=== PATIENT | male | born 1950 | race Caucasian/White ===

== ENCOUNTER 2022-01-23 08:27 | Inpatient (IN) | payer MEDICARE, OTHER ==
[2022-01-23 09:18] LABS: CHLORIDE,CL 102 mmol/L (98-107); SODIUM,NA 137 mmol/L (136-145)
[2022-01-23] MEDS ORDERED: Morphine 2 MG/ML SYRINGE IVPUSH ONE ×2 (09:18→09:24)
[2022-01-23 09:19] LABS: ANION GAP 10.7 mmol/L (5-15)
[2022-01-23] MEDS ORDERED: Ondansetron 4 MG/2 ML SDV IVPUSH ONE (09:19)
[2022-01-23] MEDS ORDERED: cefTRIAXone 1 GM Vial IVPUSH ONE (09:21)
[2022-01-23] MEDS ORDERED: Levalbuterol HCl 1.25 MG/0.5 ML Neb NEB ONE (09:24)
[2022-01-23] MEDS ORDERED: Aspirin 81 MG Tab.Chew PO ONE (09:35)
[2022-01-23] MEDS ORDERED: Sodium Chloride 0.9% 1,000 ML IV ONE (09:35)
[2022-01-23] MEDS ORDERED: Levofloxacin/Dextrose 5%-Water 750 MG in Premix Bag 1 BAG IV ONE (10:31)
[2022-01-23] MEDS ORDERED: Nitroglycerin 0.4 MG Tab.SL SL PRN (10:33)
[2022-01-23] MEDS ORDERED: Hydrocortisone Sodium Succinate 100 MG/2 ML SDV IVPUSH ONE ×2 (10:52→12:15)
[2022-01-23] MEDS ORDERED: Iopamidol 755 Mg/ML 100 ML Bottle IVPUSH ONE (10:55)
[2022-01-23] MEDS ORDERED: Albuterol/Ipratropium 3.0-0.5 MG/3 ML Neb Soln NEB PRN (12:04)
[2022-01-23 12:13] LABS: CORONAVIRUS COVID-19 NAA NEGATIVE (NEGATIVE)
[2022-01-23 12:14] LABS: RESPIRATORY SYNCYTIAL VIR NAA NEGATIVE (NEGATIVE)
[2022-01-23] MEDS: Morphine 2 MG/ML SYRINGE IVPUSH PRN ×2 (12:42→16:28)
[2022-01-23] MEDS: Sodium Chloride 0.9% 1,000 ML IV SCH ×2 (14:10→23:55)
[2022-01-23] MEDS: Acetaminophen 325 MG Tab PO PRN (14:28)
[2022-01-23] MEDS: Albuterol/Ipratropium 3.0-0.5 MG/3 ML Neb Soln NEB SCH ×2 (14:29→18:00)
[2022-01-23] MEDS ORDERED: Albuterol 0.083% 2.5 MG/3 ML Neb Soln NEB PRN (14:39)
[2022-01-23] MEDS: Omeprazole 20 MG Cap.CR PO SCH (16:05)
[2022-01-23] MEDS ORDERED: Glucagon,Human Recombinant 1 MG Vial IM PRN (17:27)
[2022-01-23] MEDS ORDERED: 50% Dextrose in Water 50 ML Syringe IVPUSH PRN (17:27)
[2022-01-23] MEDS: Hydrocortisone 20 MG Tab PO SCH (17:59)
[2022-01-23] MEDS: Insulin Glarg,Human.Rec.Analog 100 Unit/ML SUBCUT SCH (18:00)
[2022-01-23] MEDS: Enoxaparin 40 MG/0.4 ML Syringe SUBCUT SCH (19:51)
[2022-01-23] MEDS: Sertraline 100 MG Tab PO SCH (19:52)
[2022-01-23] MEDS: Simvastatin 10 MG Tab PO SCH (19:52)
[2022-01-23] MEDS: buPROPion 150 MG Tab.ER PO SCH (19:52)
[2022-01-23] MEDS: Allopurinol 100 MG Tab PO SCH (19:52)
[2022-01-23] MEDS: traZODone 50 MG Tab PO SCH (19:53)
[2022-01-23] MEDS ORDERED: Piperacillin/Tazobactam 4.5 GM in Sodium Chloride 0.9% 100 ML IV ONE (20:00)
[2022-01-23] MEDS: LORazepam 0.5 MG Tab PO PRN (22:56)
[2022-01-24] MEDS: Albuterol/Ipratropium 3.0-0.5 MG/3 ML Neb Soln NEB SCH ×4 (01:31→18:06)
[2022-01-24] MEDS ORDERED: Metoprolol Tartrate 5 MG/5 ML SDV IVPUSH ONE (01:57)
[2022-01-24] MEDS: Piperacillin/Tazobactam 3.375 GM in Sodium Chloride 0.9% 100 ML IV SCH ×3 (03:47→19:27)
[2022-01-24] MEDS: Sodium Chloride 0.9% 1,000 ML IV SCH (04:32)
[2022-01-24] MEDS: Levothyroxine 150 MCG Tab PO SCH (06:18)
[2022-01-24] MEDS: Omeprazole 20 MG Cap.CR PO SCH ×2 (06:18→17:04)
[2022-01-24 07:10] LABS: CHLORIDE,CL 110 mmol/L (98-107); SODIUM,NA 141 mmol/L (136-145)
[2022-01-24 07:11] LABS: ANION GAP 7.9 mmol/L (5-15)
[2022-01-24] MEDS: Cholecalciferol (Vitamin D3) 25 MCG Tab PO SCH (07:50)
[2022-01-24] MEDS: Montelukast 10 MG Tab PO SCH (07:50)
[2022-01-24] MEDS: Hydrocortisone 20 MG Tab PO SCH ×2 (07:50→17:04)
[2022-01-24] MEDS: Ascorbic Acid 500 MG Tab PO SCH (07:50)
[2022-01-24] MEDS: Insulin Glarg,Human.Rec.Analog 100 Unit/ML SUBCUT SCH (07:53)
[2022-01-24] MEDS: TESTOSTERONE TOP SCH (09:18)
[2022-01-24] MEDS: Acetaminophen 325 MG Tab PO PRN ×2 (10:16→19:38)
[2022-01-24] MEDS: buPROPion 150 MG Tab.ER PO SCH (19:30)
[2022-01-24] MEDS: traZODone 50 MG Tab PO SCH (19:30)
[2022-01-24] MEDS: Sertraline 100 MG Tab PO SCH (19:30)
[2022-01-24] MEDS: Simvastatin 10 MG Tab PO SCH (19:30)
[2022-01-24] MEDS: Allopurinol 100 MG Tab PO SCH (19:30)
[2022-01-24] MEDS: Enoxaparin 40 MG/0.4 ML Syringe SUBCUT SCH (19:31)
[2022-01-24] MEDS: LORazepam 0.5 MG Tab PO PRN (23:04)
[2022-01-25] MEDS: Albuterol/Ipratropium 3.0-0.5 MG/3 ML Neb Soln NEB SCH ×4 (00:04→18:27)
[2022-01-25] MEDS: Morphine 2 MG/ML SYRINGE IVPUSH PRN (01:57)
[2022-01-25] MEDS: Piperacillin/Tazobactam 3.375 GM in Sodium Chloride 0.9% 100 ML IV SCH ×3 (03:00→19:50)
[2022-01-25] MEDS: Lisinopril 2.5 MG Tab PO SCH ×2 (03:31→08:08)
[2022-01-25] MEDS: Levothyroxine 150 MCG Tab PO SCH (06:01)
[2022-01-25] MEDS: Omeprazole 20 MG Cap.CR PO SCH ×2 (06:01→17:40)
[2022-01-25 07:11] LABS: CHLORIDE,CL 109 mmol/L (98-107); SODIUM,NA 141 mmol/L (136-145)
[2022-01-25] MEDS: Acetaminophen/HYDROcodone 325-5 MG Tab PO PRN ×2 (08:07→20:37)
[2022-01-25] MEDS: Cholecalciferol (Vitamin D3) 25 MCG Tab PO SCH (08:08)
[2022-01-25] MEDS: Ascorbic Acid 500 MG Tab PO SCH (08:09)
[2022-01-25] MEDS: Hydrocortisone 20 MG Tab PO SCH (08:09)
[2022-01-25] MEDS: Montelukast 10 MG Tab PO SCH (08:09)
[2022-01-25] MEDS: Insulin Glarg,Human.Rec.Analog 100 Unit/ML SUBCUT SCH (08:11)
[2022-01-25] MEDS: TESTOSTERONE TOP SCH (08:12)
[2022-01-25] MEDS ORDERED: methylPREDNISolone Sodium Succinate 40 MG/1 ML SDV IVPUSH ONE (09:15)
[2022-01-25] MEDS: metFORMIN 500 MG Tab PO SCH ×2 (09:36→17:41)
[2022-01-25] MEDS: Arformoterol 15 MCG/2 ML Neb Soln NEB SCH ×2 (09:37→20:27)
[2022-01-25] MEDS: VANCOmycin 1.25 GM/250 ML 1.25 GM in Premix Bag 1 BAG IV SCH (11:30)
[2022-01-25] MEDS ORDERED: Metoprolol Tartrate 5 MG/5 ML SDV IVPUSH PRN (16:59)
[2022-01-25] MEDS ORDERED: Metoprolol Succinate 25 MG Tab.ER PO ONE (17:00)
[2022-01-25] MEDS: LORazepam 0.5 MG Tab PO PRN ×2 (17:15→23:18)
[2022-01-25] MEDS ORDERED: 50% Dextrose in Water 50 ML Syringe IVPUSH PRN (17:30)
[2022-01-25] MEDS ORDERED: Glucagon,Human Recombinant 1 MG Vial IM PRN (17:30)
[2022-01-25] MEDS: Insulin Lispro 100 Units/ML 3 ML Vial SUBCUT SCH (17:41)
[2022-01-25] MEDS ORDERED: Lisinopril 2.5 MG Tab PO SCH (20:00)
[2022-01-25] MEDS ORDERED: Lisinopril 5 MG Tab PO SCH (20:00)
[2022-01-25] MEDS: Sertraline 100 MG Tab PO SCH (20:26)
[2022-01-25] MEDS: traZODone 50 MG Tab PO SCH (20:26)
[2022-01-25] MEDS: Allopurinol 100 MG Tab PO SCH (20:26)
[2022-01-25] MEDS: buPROPion 150 MG Tab.ER PO SCH (20:26)
[2022-01-25] MEDS: Simvastatin 10 MG Tab PO SCH (20:26)
[2022-01-26] MEDS: Albuterol/Ipratropium 3.0-0.5 MG/3 ML Neb Soln NEB SCH ×2 (00:06→06:36)
[2022-01-26] MEDS: Piperacillin/Tazobactam 3.375 GM in Sodium Chloride 0.9% 100 ML IV SCH (03:48)
[2022-01-26] MEDS: Arformoterol 15 MCG/2 ML Neb Soln NEB SCH (06:36)
[2022-01-26] MEDS: Omeprazole 20 MG Cap.CR PO SCH (06:36)
[2022-01-26] MEDS: Levothyroxine 150 MCG Tab PO SCH (06:36)
[2022-01-26] MEDS: Acetaminophen/HYDROcodone 325-5 MG Tab PO PRN ×2 (06:39→11:41)
[2022-01-26 07:30] LABS: CHLORIDE,CL 107 mmol/L (98-107); SODIUM,NA 142 mmol/L (136-145)
[2022-01-26 07:32] LABS: ANION GAP 12.9 mmol/L (5-15)
[2022-01-26] MEDS: Ascorbic Acid 500 MG Tab PO SCH (09:03)
[2022-01-26] MEDS: Cholecalciferol (Vitamin D3) 25 MCG Tab PO SCH (09:03)
[2022-01-26] MEDS: metFORMIN 500 MG Tab PO SCH (09:03)
[2022-01-26] MEDS: Montelukast 10 MG Tab PO SCH (09:03)
[2022-01-26] MEDS: TESTOSTERONE TOP SCH (09:05)
[2022-01-26] MEDS: Insulin Lispro 100 Units/ML 3 ML Vial SUBCUT SCH ×2 (09:07→11:41)
[2022-01-26] MEDS: Insulin Glarg,Human.Rec.Analog 100 Unit/ML SUBCUT SCH (09:07)
[2022-01-26] MEDS ORDERED: Metoprolol Succinate 25 MG Tab.ER PO SCH (09:15)
[2022-01-26] MEDS ORDERED: predniSONE 20 MG Tab PO SCH (09:30)
[2022-01-26] MEDS: VANCOmycin 1.25 GM/250 ML 1.25 GM in Premix Bag 1 BAG IV SCH ×3 (10:51)
== END 2022-01-26 12:50 | disposition home or self-care (01) | DRG 871 ==
LOC: VM.ED 08:27 → VM.MS 10:55
PROVIDERS: ADMIT Physician Assistant Medical; ATTEND Internal Medicine
DX: A41.9 Sepsis, unspecified organism (principal); J18.9 Pneumonia, unspecified organism; R07.89 Other chest pain; J96.01 Acute respiratory failure with hypoxia; J45.901 Unspecified asthma with (acute) exacerbation; E23.0 Hypopituitarism; I95.9 Hypotension, unspecified; I48.0 Paroxysmal atrial fibrillation; N18.9 Chronic kidney disease, unspecified; I12.9 Hypertensive chronic kidney disease with stage 1 through stage 4 chronic kidney disease, or unspecified chronic kidney disease; R07.9 Chest pain, unspecified; F32.A Depression, unspecified; E11.22 Type 2 diabetes mellitus with diabetic chronic kidney disease; E66.9 Obesity, unspecified; K80.80 Other cholelithiasis without obstruction; M19.90 Unspecified osteoarthritis, unspecified site; E78.5 Hyperlipidemia, unspecified; E03.9 Hypothyroidism, unspecified; Z87.442 Personal history of urinary calculi; Z91.041 Radiographic dye allergy status; Z91.013 Allergy to seafood; Z88.8 Allergy status to other drugs, medicaments and biological substances; Z79.899 Other long term (current) drug therapy; Z79.890 Hormone replacement therapy; Z87.891 Personal history of nicotine dependence; Z79.84 Long term (current) use of oral hypoglycemic drugs; Z98.890 Other specified postprocedural states; Z98.84 Bariatric surgery status; Z20.822 Contact with and (suspected) exposure to COVID-19; Z68.28 Body mass index [BMI] 28.0-28.9, adult
CPT/HCPCS: 0241U; 36415; 71045; 71046; 71275; 80048; 80069; 80076; 80202; 81001; 82947; 83605; 84145; 84436; 84443; 84480; 84484; 85025; 86140; 87040; 87070; 87205; 93005; 93010; 94640; 94667; 94760; 96374; 96375; 99284; 99285-25; A9270-GY; J0696; J1650; J1720; J1815-GY; J1956; J2270; J2405; J2543; J2920; J3370; J3490; J7030; J7050; J7512; J7613-GY; J7620-GY; Q9967

== ENCOUNTER 2022-01-28 13:56 | Inpatient (IN) | payer MEDICARE, OTHER ==
[2022-01-28] MEDS ORDERED: Sodium Chloride 0.9% 10 ML Syringe FLUSH PRN (14:20)
[2022-01-28] MEDS ORDERED: Albuterol/Ipratropium 3.0-0.5 MG/3 ML Neb Soln NEB ONE (14:25)
[2022-01-28 15:35] LABS: PTT,PARTIAL THROMBOPLSTIN TIME 28.7 SEC (20.5-30.9)
[2022-01-28 15:50] LABS: CHLORIDE,CL 100 mmol/L (98-107); SODIUM,NA 139 mmol/L (136-145)
[2022-01-28 15:52] LABS: ANION GAP 16.2 mmol/L (5-15)
[2022-01-28] MEDS ORDERED: Piperacillin/Tazobactam 4.5 GM in Sodium Chloride 0.9% 100 ML IV ONE (15:58)
[2022-01-28] MEDS ORDERED: methylPREDNISolone Sodium Succinate 125 MG/2 ML SDV IVPUSH ONE (16:09)
[2022-01-28 16:38] LABS: CORONAVIRUS COVID-19 NAA NEGATIVE (NEGATIVE)
[2022-01-28 16:39] LABS: RESPIRATORY SYNCYTIAL VIR NAA NEGATIVE (NEGATIVE)
[2022-01-28] MEDS ORDERED: Piperacillin/Tazobactam 4.5 GM Vial ONE (17:00)
[2022-01-28] MEDS ORDERED: Piperacillin/Tazobactam 3.375 GM in Sodium Chloride 0.9% 100 ML IV SCH (18:30)
[2022-01-28] MEDS ORDERED: Lisinopril 2.5 MG Tab PO SCH (20:00)
[2022-01-28] MEDS: Arformoterol 15 MCG/2 ML Neb Soln NEB SCH (20:13)
[2022-01-28] MEDS: Allopurinol 100 MG Tab PO SCH (20:18)
[2022-01-28] MEDS: buPROPion 150 MG Tab.ER PO SCH (20:19)
[2022-01-28] MEDS: Simvastatin 20 MG Tab PO SCH (20:19)
[2022-01-28] MEDS: Sertraline 100 MG Tab PO SCH (20:19)
[2022-01-28] MEDS: Omeprazole 20 MG Cap.CR PO SCH (20:19)
[2022-01-28] MEDS: traZODone 50 MG Tab PO SCH (20:20)
[2022-01-28] MEDS ORDERED: Acetaminophen/oxyCODONE 325-5 MG Tab PO ONE (21:00)
[2022-01-28] MEDS: Piperacillin/Tazobactam 3.375 GM in Sodium Chloride 0.9% 100 ML IV SCH (21:49)
[2022-01-29] MEDS ORDERED: amLODIPine 5 MG Tab PO STA (00:02)
[2022-01-29] MEDS: Arformoterol 15 MCG/2 ML Neb Soln NEB SCH ×2 (06:09→21:00)
[2022-01-29] MEDS: Piperacillin/Tazobactam 3.375 GM in Sodium Chloride 0.9% 100 ML IV SCH ×3 (06:10→21:49)
[2022-01-29] MEDS: Acetaminophen 325 MG Tab PO PRN ×3 (06:13→17:54)
[2022-01-29] MEDS: Albuterol/Ipratropium 3.0-0.5 MG/3 ML Neb Soln NEB PRN ×2 (06:26→15:39)
[2022-01-29] MEDS: Tiotropium Bromide 4 GM Inhalation Spray (2.5mcg/1 dose; 10 doses) INH SCH (07:46)
[2022-01-29] MEDS: Aspirin 81 MG Tab.EC PO SCH (07:54)
[2022-01-29] MEDS: Multivitamins with Iron/Calcium/Folic Acid/Minerals Tab PO SCH (07:54)
[2022-01-29] MEDS: Furosemide 20 MG Tab PO SCH (07:54)
[2022-01-29] MEDS: Metoprolol Succinate 25 MG Tab.ER PO SCH (07:54)
[2022-01-29] MEDS: metFORMIN 500 MG Tab PO SCH ×2 (07:55→17:54)
[2022-01-29] MEDS: Cholecalciferol (Vitamin D3) 25 MCG Tab PO SCH (07:55)
[2022-01-29] MEDS: Montelukast 10 MG Tab PO SCH (07:55)
[2022-01-29] MEDS: Omeprazole 20 MG Cap.CR PO SCH ×2 (07:55→21:00)
[2022-01-29] MEDS: Ascorbic Acid 500 MG Tab PO SCH (07:55)
[2022-01-29] MEDS ORDERED: Levothyroxine 150 MCG Tab PO SCH (08:00)
[2022-01-29 08:59] LABS: ANION GAP 13.4 mmol/L (5-15)
[2022-01-29] MEDS: Lisinopril 10 MG Tab PO SCH (09:55)
[2022-01-29] MEDS: Sodium Chloride 0.9% 1,000 ML IV SCH ×2 (09:55→21:30)
[2022-01-29] MEDS: Hydrocortisone 20 MG Tab PO SCH (11:21)
[2022-01-29] MEDS: Enoxaparin 40 MG/0.4 ML Syringe SUBCUT SCH (11:21)
[2022-01-29] MEDS: tiZANidine 4 MG Tab PO PRN ×2 (13:57→22:50)
[2022-01-29] MEDS: Ondansetron 4 MG/2 ML SDV IVPUSH PRN (17:54)
[2022-01-29] MEDS: Sertraline 100 MG Tab PO SCH (21:00)
[2022-01-29] MEDS: Simvastatin 20 MG Tab PO SCH (21:00)
[2022-01-29] MEDS: traZODone 50 MG Tab PO SCH (21:00)
[2022-01-29] MEDS: buPROPion 150 MG Tab.ER PO SCH (21:00)
[2022-01-29] MEDS: Allopurinol 100 MG Tab PO SCH (21:00)
[2022-01-29] MEDS ORDERED: Acetaminophen/oxyCODONE 325-5 MG Tab PO ONE (21:08)
[2022-01-30] MEDS: Piperacillin/Tazobactam 3.375 GM in Sodium Chloride 0.9% 100 ML IV SCH ×3 (05:15→22:22)
[2022-01-30] MEDS: Levothyroxine 150 MCG Tab PO SCH (06:00)
[2022-01-30] MEDS: Arformoterol 15 MCG/2 ML Neb Soln NEB SCH ×2 (06:00→20:18)
[2022-01-30 07:45] LABS: ANION GAP 12.5 mmol/L (5-15)
[2022-01-30] MEDS ORDERED: LORazepam 0.5 MG Tab PO PRN (08:38)
[2022-01-30] MEDS ORDERED: Flumazenil 0.1 MG/ML 5 ML MDV IVPUSH PRN (08:43)
[2022-01-30] MEDS ORDERED: LORazepam 2 MG/ML SDV IVPUSH PRN (08:43)
[2022-01-30] MEDS ORDERED: 50% Dextrose in Water 50 ML Syringe IVPUSH PRN (08:46)
[2022-01-30] MEDS ORDERED: Glucagon,Human Recombinant 1 MG Vial IM PRN (08:46)
[2022-01-30] MEDS: Cholecalciferol (Vitamin D3) 25 MCG Tab PO SCH (09:53)
[2022-01-30] MEDS: Multivitamins with Iron/Calcium/Folic Acid/Minerals Tab PO SCH (09:53)
[2022-01-30] MEDS: Montelukast 10 MG Tab PO SCH (09:54)
[2022-01-30] MEDS: Ascorbic Acid 500 MG Tab PO SCH (09:54)
[2022-01-30] MEDS: Aspirin 81 MG Tab.EC PO SCH (09:54)
[2022-01-30] MEDS: Omeprazole 20 MG Cap.CR PO SCH ×2 (09:54→20:20)
[2022-01-30] MEDS: Furosemide 20 MG Tab PO SCH (09:54)
[2022-01-30] MEDS: Lisinopril 10 MG Tab PO SCH (09:55)
[2022-01-30] MEDS: Metoprolol Succinate 25 MG Tab.ER PO SCH (09:55)
[2022-01-30] MEDS: Tiotropium Bromide 4 GM Inhalation Spray (2.5mcg/1 dose; 10 doses) INH SCH (10:04)
[2022-01-30] MEDS: Albuterol 0.083% 2.5 MG/3 ML Neb Soln NEB SCH ×3 (10:05→20:18)
[2022-01-30] MEDS: Insulin Glarg,Human.Rec.Analog 100 Unit/ML SUBCUT SCH (10:05)
[2022-01-30] MEDS: methylPREDNISolone Sodium Succinate 40 MG/1 ML SDV IVPUSH SCH ×2 (10:06→20:21)
[2022-01-30] MEDS: Enoxaparin 40 MG/0.4 ML Syringe SUBCUT SCH (12:57)
[2022-01-30] MEDS: Hydrocortisone 20 MG Tab PO SCH (12:57)
[2022-01-30] MEDS: Acetaminophen 325 MG Tab PO PRN (12:58)
[2022-01-30] MEDS: Codeine/guaiFENesin 10-100 MG/5 ML Syrup 5 ML Cup PO PRN ×2 (13:01→17:33)
[2022-01-30] MEDS ORDERED: Furosemide 20 MG/2 ML VIAL IV ONE (17:30)
[2022-01-30] MEDS: Albuterol/Ipratropium 3.0-0.5 MG/3 ML Neb Soln NEB PRN (17:34)
[2022-01-30] MEDS: traZODone 50 MG Tab PO SCH (20:18)
[2022-01-30] MEDS: Simvastatin 20 MG Tab PO SCH (20:19)
[2022-01-30] MEDS: buPROPion 150 MG Tab.ER PO SCH (20:19)
[2022-01-30] MEDS: Allopurinol 100 MG Tab PO SCH (20:20)
[2022-01-30] MEDS: Sertraline 100 MG Tab PO SCH (20:20)
[2022-01-30] MEDS ORDERED: Acetaminophen/oxyCODONE 325-5 MG Tab PO ONE (22:10)
[2022-01-30] MEDS ORDERED: Acetaminophen/HYDROcodone 325-10 MG Tab PO ONE (22:28)
[2022-01-31] MEDS: Levothyroxine 150 MCG Tab PO SCH (06:33)
[2022-01-31] MEDS: Piperacillin/Tazobactam 3.375 GM in Sodium Chloride 0.9% 100 ML IV SCH (06:34)
[2022-01-31 06:52] LABS: CHLORIDE,CL 102 mmol/L (98-107); SODIUM,NA 139 mmol/L (136-145)
[2022-01-31 06:54] LABS: ANION GAP 9.1 mmol/L (5-15)
[2022-01-31] MEDS: Arformoterol 15 MCG/2 ML Neb Soln NEB SCH (07:35)
[2022-01-31] MEDS: Albuterol 0.083% 2.5 MG/3 ML Neb Soln NEB SCH ×2 (07:35→11:27)
[2022-01-31] MEDS: Tiotropium Bromide 4 GM Inhalation Spray (2.5mcg/1 dose; 10 doses) INH SCH (07:36)
[2022-01-31] MEDS: Insulin Glarg,Human.Rec.Analog 100 Unit/ML SUBCUT SCH (07:41)
[2022-01-31] MEDS: Ondansetron 4 MG/2 ML SDV IVPUSH PRN (07:42)
[2022-01-31] MEDS: Codeine/guaiFENesin 10-100 MG/5 ML Syrup 5 ML Cup PO PRN (07:42)
[2022-01-31] MEDS: methylPREDNISolone Sodium Succinate 40 MG/1 ML SDV IVPUSH SCH (07:42)
[2022-01-31] MEDS: Ascorbic Acid 500 MG Tab PO SCH (07:43)
[2022-01-31] MEDS: Aspirin 81 MG Tab.EC PO SCH (07:43)
[2022-01-31] MEDS: Metoprolol Succinate 25 MG Tab.ER PO SCH (07:43)
[2022-01-31] MEDS: Montelukast 10 MG Tab PO SCH (07:43)
[2022-01-31] MEDS: Cholecalciferol (Vitamin D3) 25 MCG Tab PO SCH (07:43)
[2022-01-31] MEDS: Omeprazole 20 MG Cap.CR PO SCH (07:43)
[2022-01-31] MEDS: tiZANidine 4 MG Tab PO PRN (07:43)
[2022-01-31] MEDS: Lisinopril 10 MG Tab PO SCH (07:44)
[2022-01-31] MEDS: Multivitamins with Iron/Calcium/Folic Acid/Minerals Tab PO SCH (07:44)
[2022-01-31] MEDS: Furosemide 20 MG Tab PO SCH (07:44)
== END 2022-01-31 11:05 | disposition home or self-care (01) | DRG 871 ==
LOC: VM.ED 13:56 → VM.MS 16:50
PROVIDERS: ADMIT Nurse Practitioner Family; ATTEND Internal Medicine
DX: A41.89 Other specified sepsis (principal); J18.9 Pneumonia, unspecified organism; I50.9 Heart failure, unspecified; E86.0 Dehydration; H54.7 Unspecified visual loss; M19.90 Unspecified osteoarthritis, unspecified site; G56.03 Carpal tunnel syndrome, bilateral upper limbs; I11.0 Hypertensive heart disease with heart failure; J45.909 Unspecified asthma, uncomplicated; E11.69 Type 2 diabetes mellitus with other specified complication; E78.5 Hyperlipidemia, unspecified; F32.A Depression, unspecified; E66.9 Obesity, unspecified; I48.0 Paroxysmal atrial fibrillation; N28.9 Disorder of kidney and ureter, unspecified; E11.65 Type 2 diabetes mellitus with hyperglycemia; G47.00 Insomnia, unspecified; J84.10 Pulmonary fibrosis, unspecified; E03.9 Hypothyroidism, unspecified; Z87.442 Personal history of urinary calculi; E23.0 Hypopituitarism; E11.9 Type 2 diabetes mellitus without complications; Z91.09 Other allergy status, other than to drugs and biological substances; Z79.51 Long term (current) use of inhaled steroids; Z95.1 Presence of aortocoronary bypass graft; Z87.891 Personal history of nicotine dependence; Z91.041 Radiographic dye allergy status; Z91.013 Allergy to seafood; Z88.8 Allergy status to other drugs, medicaments and biological substances; Z98.84 Bariatric surgery status; Z91.048 Other nonmedicinal substance allergy status; Z68.29 Body mass index [BMI] 29.0-29.9, adult; Z79.82 Long term (current) use of aspirin; Z79.890 Hormone replacement therapy; Z79.4 Long term (current) use of insulin; Z79.52 Long term (current) use of systemic steroids; Z79.899 Other long term (current) drug therapy; Z20.822 Contact with and (suspected) exposure to COVID-19
CPT/HCPCS: 0241U; 36415; 71045; 71046; 80048; 80053; 82803; 83605; 83735; 83880; 84100; 84484; 85025; 85610; 85730; 86140; 87040; 93005; 93010; 94640; 94667; 94760; 96374; 96375; 99284; 99285-25; A9270-GY; J1650; J1815-GY; J1940; J2060; J2405; J2543; J2920; J2930; J7030; J7613-GY; J7620-GY

== ENCOUNTER 2022-02-08 17:07 | Inpatient (IN) | payer MEDICARE, OTHER ==
[2022-02-08] MEDS ORDERED: Diltiazem 50 MG/10 ML SDV IVPUSH ONE ×2 (17:35→17:38)
[2022-02-08] MEDS ORDERED: Ondansetron 4 MG/2 ML SDV IVPUSH ONE (17:51)
[2022-02-08 18:00] LABS: CHLORIDE,CL 101 mmol/L (98-107); SODIUM,NA 144 mmol/L (136-145)
[2022-02-08 18:01] LABS: ANION GAP 13.6 mmol/L (5-15)
[2022-02-08] MEDS ORDERED: Diltiazem 125 MG in Sodium Chloride 0.9% 100 ML IV SCH (18:30)
[2022-02-08] MEDS ORDERED: Sodium Chloride 0.9% 1,000 ML IV SCH (19:48)
[2022-02-08] MEDS: Digoxin 500 MCG/2 ML Amp IVPUSH SCH (21:25)
[2022-02-08] MEDS ORDERED: Glucagon,Human Recombinant 1 MG Vial IM PRN (21:38)
[2022-02-08] MEDS ORDERED: Albuterol 0.083% 2.5 MG/3 ML Neb Soln NEB PRN (21:38)
[2022-02-08] MEDS ORDERED: 50% Dextrose in Water 50 ML Syringe IVPUSH PRN (21:38)
[2022-02-08] MEDS ORDERED: Acetaminophen 325 MG Tab PO PRN (21:38)
[2022-02-08] MEDS ORDERED: Ondansetron 4 MG Tab.DIS PO PRN (21:49)
[2022-02-08] MEDS ORDERED: Ondansetron 4 MG/2 ML SDV IVPUSH PRN (21:50)
[2022-02-08] MEDS: Lisinopril 2.5 MG Tab PO SCH (22:15)
[2022-02-08] MEDS: Enoxaparin 40 MG/0.4 ML Syringe SUBCUT SCH (23:11)
[2022-02-08] MEDS: LORazepam 1 MG Tab PO PRN (23:18)
[2022-02-08] MEDS: Acetaminophen/HYDROcodone 325-5 MG Tab PO PRN (23:19)
[2022-02-09] MEDS: Digoxin 500 MCG/2 ML Amp IVPUSH SCH (03:22)
[2022-02-09] MEDS: Arformoterol 15 MCG/2 ML Neb Soln NEB SCH ×2 (06:17→19:54)
[2022-02-09] MEDS: Levothyroxine 150 MCG Tab PO SCH (06:19)
[2022-02-09] MEDS: Pantoprazole 40 MG Tab.CR PO SCH ×2 (06:20→18:21)
[2022-02-09] MEDS: Acetaminophen/HYDROcodone 325-5 MG Tab PO PRN ×3 (06:20→21:46)
[2022-02-09 07:15] LABS: ANION GAP 8.9 mmol/L (5-15)
[2022-02-09] MEDS ORDERED: Insulin Glarg,Human.Rec.Analog 100 Unit/ML SUBCUT SCH ×3 (08:00→20:00)
[2022-02-09] MEDS ORDERED: Aspirin 81 MG Tab.EC PO SCH (08:00)
[2022-02-09] MEDS ORDERED: predniSONE 20 MG Tab PO SCH (08:00)
[2022-02-09] MEDS: Furosemide 20 MG Tab PO SCH (08:08)
[2022-02-09] MEDS: Tamsulosin 0.4 MG Cap.ER PO SCH (08:09)
[2022-02-09] MEDS: Ascorbic Acid 500 MG Tab PO SCH (08:09)
[2022-02-09] MEDS: Cholecalciferol (Vitamin D3) 25 MCG Tab PO SCH (08:09)
[2022-02-09] MEDS: Multivitamins with Iron/Calcium/Folic Acid/Minerals Tab PO SCH (08:09)
[2022-02-09] MEDS: Montelukast 10 MG Tab PO SCH (08:09)
[2022-02-09] MEDS: Metoprolol Succinate 25 MG Tab.ER PO SCH (08:09)
[2022-02-09] MEDS ORDERED: Tiotropium Bromide 4 GM Inhalation Spray (2.5mcg/1 dose; 10 doses) INH SCH (09:30)
[2022-02-09] MEDS: Digoxin 125 MCG Tab PO SCH (10:24)
[2022-02-09] MEDS: Tiotropium Bromide 4 GM Inhalation Spray (2.5mcg/1 dose; 10 doses) INH SCH (11:27)
[2022-02-09] MEDS: TESTOSTERONE TOP SCH (18:27)
[2022-02-09] MEDS: Enoxaparin 40 MG/0.4 ML Syringe SUBCUT SCH (19:54)
[2022-02-09] MEDS: Lisinopril 2.5 MG Tab PO SCH (19:57)
[2022-02-09] MEDS ORDERED: Simvastatin 20 MG Tab PO SCH (20:00)
[2022-02-09] MEDS ORDERED: traZODone 50 MG Tab PO SCH (20:00)
[2022-02-09] MEDS ORDERED: Allopurinol 100 MG Tab PO SCH (20:00)
[2022-02-09] MEDS ORDERED: buPROPion 150 MG Tab.ER PO SCH (20:00)
[2022-02-09] MEDS ORDERED: Sertraline 100 MG Tab PO SCH (20:00)
[2022-02-09] MEDS: Albuterol HFA 18 Gm Inhaler INH PRN (20:08)
[2022-02-09] MEDS: Miconazole 2% Top Powder 45 GM Container TOP SCH (20:09)
[2022-02-09] MEDS: LORazepam 1 MG Tab PO PRN (21:46)
[2022-02-10] MEDS: Pantoprazole 40 MG Tab.CR PO SCH (06:41)
[2022-02-10] MEDS: Levothyroxine 150 MCG Tab PO SCH (06:41)
[2022-02-10] MEDS: Arformoterol 15 MCG/2 ML Neb Soln NEB SCH (07:21)
[2022-02-10] MEDS: Metoprolol Succinate 25 MG Tab.ER PO SCH (07:57)
[2022-02-10] MEDS: Montelukast 10 MG Tab PO SCH (07:57)
[2022-02-10] MEDS: Multivitamins with Iron/Calcium/Folic Acid/Minerals Tab PO SCH (07:58)
[2022-02-10] MEDS: Cholecalciferol (Vitamin D3) 25 MCG Tab PO SCH (07:58)
[2022-02-10] MEDS: Tamsulosin 0.4 MG Cap.ER PO SCH (07:58)
[2022-02-10] MEDS: Digoxin 125 MCG Tab PO SCH (07:58)
[2022-02-10] MEDS: Furosemide 20 MG Tab PO SCH (07:58)
[2022-02-10] MEDS: Ascorbic Acid 500 MG Tab PO SCH (07:58)
[2022-02-10] MEDS ORDERED: predniSONE 10 MG Tab PO SCH (08:00)
[2022-02-10] MEDS: Miconazole 2% Top Powder 45 GM Container TOP SCH (08:03)
[2022-02-10] MEDS: TESTOSTERONE TOP SCH (08:04)
[2022-02-10] MEDS: Tiotropium Bromide 4 GM Inhalation Spray (2.5mcg/1 dose; 10 doses) INH SCH (08:04)
[2022-02-10 08:06] LABS: CHLORIDE,CL 102 mmol/L (98-107); SODIUM,NA 142 mmol/L (136-145)
[2022-02-10 08:13] LABS: ANION GAP 8.9 mmol/L (5-15)
[2022-02-10] MEDS ORDERED: Insulin Lispro 100 Units/ML 3 ML Vial SUBCUT SCH (08:17)
[2022-02-10] MEDS ORDERED: Glucagon,Human Recombinant 1 MG Vial IM PRN (08:17)
[2022-02-10] MEDS ORDERED: 50% Dextrose in Water 50 ML Syringe IVPUSH PRN (08:17)
[2022-02-10] MEDS: Potassium Chloride 10 MEQ Tab.ER PO SCH ×2 (09:16→11:33)
[2022-02-10] MEDS ORDERED: Apixaban 2.5 MG Tab PO SCH (10:00)
[2022-02-10] MEDS: Acetaminophen/HYDROcodone 325-5 MG Tab PO PRN (11:38)
[2022-02-10] MEDS: Albuterol HFA 18 Gm Inhaler INH PRN (12:13)
[2022-02-11] MEDS ORDERED: Digoxin 125 MCG Tab PO SCH (08:00)
== END 2022-02-10 15:35 | disposition home or self-care (01) | DRG 309 ==
LOC: VM.ED 17:07 → VM.MS 18:37
PROVIDERS: ADMIT Nurse Practitioner Family; ATTEND Internal Medicine
DX: I48.0 Paroxysmal atrial fibrillation (principal); E23.0 Hypopituitarism; J44.1 Chronic obstructive pulmonary disease with (acute) exacerbation; I50.32 Chronic diastolic (congestive) heart failure; I13.0 Hypertensive heart and chronic kidney disease with heart failure and stage 1 through stage 4 chronic kidney disease, or unspecified chronic kidney disease; E11.65 Type 2 diabetes mellitus with hyperglycemia; G47.00 Insomnia, unspecified; I48.91 Unspecified atrial fibrillation; E66.9 Obesity, unspecified; T38.0X5A Adverse effect of glucocorticoids and synthetic analogues, initial encounter; Z87.891 Personal history of nicotine dependence; H54.7 Unspecified visual loss; J45.909 Unspecified asthma, uncomplicated; K21.9 Gastro-esophageal reflux disease without esophagitis; Z98.84 Bariatric surgery status; Z87.01 Personal history of pneumonia (recurrent); Z87.442 Personal history of urinary calculi; Z91.09 Other allergy status, other than to drugs and biological substances; Z91.013 Allergy to seafood; Z88.5 Allergy status to narcotic agent; F32.A Depression, unspecified; I10 Essential (primary) hypertension; E03.9 Hypothyroidism, unspecified; Z89.012 Acquired absence of left thumb; E11.9 Type 2 diabetes mellitus without complications; Z91.041 Radiographic dye allergy status; M10.9 Gout, unspecified; Z88.8 Allergy status to other drugs, medicaments and biological substances; N18.9 Chronic kidney disease, unspecified; Z91.018 Allergy to other foods; Z91.048 Other nonmedicinal substance allergy status; Z79.82 Long term (current) use of aspirin; Z79.890 Hormone replacement therapy; Z79.4 Long term (current) use of insulin; Z79.899 Other long term (current) drug therapy; Z20.822 Contact with and (suspected) exposure to COVID-19
CPT/HCPCS: 36415; 71046; 80048; 80053; 81003; 82550; 82947; 83605; 83615; 83735; 83880; 84132; 84484; 85018; 85025; 85027; 85610; 86140; 86606; 86612; 86698; 87385; 87449; 93005; 93010; 94640; 96374; 96375; 96376; 99284; 99285-25; A9270-GY; J1160; J1650; J1815-GY; J2405; J3490; J7030; J7512; U0002